=== PATIENT | male | born 1950 | race Caucasian/White ===

== ENCOUNTER → 2025-05-05 | Outpatient (REF) | payer MEDICARE, MEDICAID ==
[~2025-05-05] MED LIST: IBUP200C25 PO
[2025-05-05 18:24] LABS: CALCIUM LEVEL 9.6 MG/DL (8.3-10.6); CARBON DIOXIDE LEVEL 26.0 MMOL/L (20-31); CHLORIDE LEVEL 104.0 MMOL/L (98-107); CREATININE FOR GFR 0.96 MG/DL (0.70-1.30); GLOMERULAR FILTRATION RATE 84.0 (>42); POTASSIUM SERUM 4.2 MMOL/L (3.5-5.1); SODIUM LEVEL 142.0 MMOL/L (136-145)
== END ==
LOC: M LABSMT 09:29 → MERGE 09:29
PROVIDERS: ATTEND Urology
DX: C61 Malignant neoplasm of prostate (principal)

== ENCOUNTER → 2025-05-25 | Outpatient (CLI) | payer MEDICARE, MEDICAID | LOC: M ONCR 14:27 | PROVIDERS: ATTEND General Practice | DX: C61 Malignant neoplasm of prostate (principal); Z80.1 Family history of malignant neoplasm of trachea, bronchus and lung; Z80.42 Family history of malignant neoplasm of prostate; Z91.030 Bee allergy status ==